=== PATIENT | female | born 1945 | race Caucasian/White ===

== ENCOUNTER 2017-05-03 12:45 | Emergency (ER) | payer SELFPAY ==
--- NOTE | 2017-05-13 16:41 | ER ---
ADMIT: 05/03/2017 RM/LOC: ER [facility] MR#: [id number] [facility] [address] [place] [id number] GISSELLE LEE [address] [place] [address] Emergency Room Report SEX: F AGE: 71 : 1945 DATE: 05/03/2017 This 71-year-old, with a 2-hour episode of dizziness yesterday. She feels fine now. Not quantify or qualify what she meant by dizziness. See T-sheet for history and physical. CT of the head shows no acute changes. CBC and CMP within normal parameters. UA is unremarkable. DIAGNOSIS: Dizziness. Instructed to follow up this week. Gómez Rocha MD/ rolo JOB #: [id number] CC: Kris Tobar MD, Attending Physician Candi Renee MD, Family Physician
== END 2017-05-03 14:50 | disposition home or self-care (01) ==
LOC: ER 12:45
DX: R42 Dizziness and giddiness (principal); E11.9 Type 2 diabetes mellitus without complications; Z98.890 Other specified postprocedural states